=== PATIENT | female | born 1990 | race Two or more races ===

== ENCOUNTER 2017-08-11 05:58 | Inpatient (IN) | payer SELFPAY ==
[2017-08-11] MEDS ORDERED: OXYTOCIN 30 UNIT/500 ML PREMIX 500 ML IV ×3 (06:00→17:00)
[2017-08-11] MEDS ORDERED: ONDANSETRON PF 4 MG/2 ML VIAL. IV ×3 (06:00→20:30)
[2017-08-11] MEDS ORDERED: AMPICILLIN SODIUM 2 GM in IV NORMAL SALINE 100ML 100 ML IV (06:00)
[2017-08-11] MEDS ORDERED: LIDOCAINE 1% PF 30 ML VIAL. INJ (06:00)
[2017-08-11] MEDS ORDERED: TERBUTALINE 1 MG/ML VIAL. SQ (06:00)
[2017-08-11] MEDS ORDERED: BUTORPHANOL 2 MG/ML VIAL. IV (06:00)
[2017-08-11] MEDS ORDERED: AMPICILLIN SODIUM 1 GM in IV NORMAL SALINE 50ML 50 ML IV (06:15)
[2017-08-11] MEDS ORDERED: AMPICILLIN SODIUM IV Push 2 GM VIAL. IVP (06:30)
[2017-08-11 06:46] LABS: ADD MAN DIFF? NO
[2017-08-11 06:48] LABS: BASO % 1 % (0-3); EOS % 1 % (0-3); HEMATOCRIT 38.8 % (36.0-47.0); HEMOGLOBIN 12.9 g/dL (12.0-15.5); LYMPH # 2.2 x10^3/uL (1.0-4.8); LYMPH % 27 % (24-48); MEAN CORPUSCULAR HEMOGLOBIN 29 pg (25-35); MEAN CORPUSCULAR HGB CONC 33 g/dL (31-37); MEAN CORPUSCULAR VOLUME 88 fL (79-100); MONO # 0.6 x10^3/uL (0.0-1.1); MONO % 8 % (0-9); NEUT # 5.4 x10^3uL (1.8-7.7); NEUT % 65 % (31-73); PLATELET COUNT 206 x10^3/uL (140-400); RED BLOOD COUNT 4.41 x10^6/uL (3.50-5.40); RED CELL DISTRIBUTION WIDTH 14.4 % (11.5-14.5); WHITE BLOOD COUNT 8.3 x10^3/uL (4.0-11.0)
[2017-08-11] MEDS: IV RINGERS,LACTATED 1000ML 1,000 ML IV ×2 (09:45→12:06)
[2017-08-11] MEDS ORDERED: AMPICILLIN SODIUM IV Push 1 GM VIAL. IVP (11:00)
[2017-08-11] MEDS: CITRIC ACID/SODIUM CITRATE 30 ML SOLUTION. PO (14:08)
[2017-08-11] MEDS ORDERED: MORPHINE PF 5 MG/10 ML VIAL. (15:37)
[2017-08-11] MEDS ORDERED: OXYTOCIN 10 UNIT/ML VIAL. (15:37)
[2017-08-11] MEDS ORDERED: ePHEDrine PF IN SALINE 50 MG/5 ML DISP.SYRIN IV (15:58)
[2017-08-11] MEDS ORDERED: METOCLOPRAMIDE HCL 10 MG/2 ML VIAL. (16:07)
[2017-08-11] MEDS ORDERED: FERROUS SULFATE 325 MG TABLET. PO (17:00)
[2017-08-11] MEDS ORDERED: 0.9 % SODIUM CHLORIDE 10 ML DISP.SYRIN. IV (17:00)
[2017-08-11] MEDS ORDERED: oxyCODONE/APAP 5/325 1 TAB TABLET PO (17:00)
[2017-08-11] MEDS ORDERED: MAG HYDROX/ALUMINUM HYD/SIMETH 30 ML ORAL.SUSP PO (17:00)
[2017-08-11] MEDS ORDERED: diphenhydrAMINE ORAL ELIXIR 12.5 MG/5 ML ML PO (17:00)
[2017-08-11] MEDS ORDERED: SIMETHICONE 80 MG TAB.CHEW PO (17:00)
[2017-08-11] MEDS ORDERED: ZOLPIDEM 5 MG TABLET. PO (17:00)
[2017-08-11] MEDS ORDERED: MAGNESIUM HYDROXIDE 2,400 MG/30 ML ORAL.SUSP. PO (17:00)
[2017-08-11] MEDS ORDERED: MMR per PROTOCOL. MC (17:00)
[2017-08-11 17:02] LABS: BILIRUBIN,URINE NEGATIVE (NEG); CLARITY,URINE CLEAR; COLOR,URINE YELLOW; GLUCOSE,URINE NEGATIVE (NEG); NITRITE,URINE NEGATIVE (NEG); PH,URINE 7.5; PROTEIN,URINE NEGATIVE (NEG-TRACE); UROBILINOGEN,URINE 0.2 mg/dL (0.2 mg/dL)
[2017-08-11 17:17] LABS: BACTERIA,URINE 0 /HPF (0-FEW); HYALINE CASTS, URINE OCCASIONAL /HPF; RBC,URINE 0 /HPF (0-2); SQUAMOUS EPITHELIAL CELL,UR OCC /LPF; WBC,URINE OCC /HPF (0-4)
[2017-08-11] MEDS ORDERED: diphenhydrAMINE 50 MG/ML VIAL IVP ×2 (20:30)
[2017-08-11] MEDS: fentaNYL PF VIAL 100 MCG/2 ML VIAL IV (20:39)
[2017-08-11] MEDS ORDERED: ceFAZolin SODIUM 1 GM in IV DEXTROSE 5% 50 ML IV (22:00)
[2017-08-11] MEDS: IBUPROFEN 800 MG TABLET. PO (22:00)
[2017-08-11] MEDS: ceFAZolin SODIUM IV Push 1 GM VIAL. IVP (23:01)
[2017-08-12] MEDS: KETOROLAC 30 MG/ML INJ. IV ×2 (01:56→07:54)
[2017-08-12 03:15] LABS: RPR Non Reactive (Non Reactive)
[2017-08-12] MEDS: IV RINGERS,LACTATED 1000ML 1,000 ML IV ×2 (03:24→05:59)
[2017-08-12 04:53] LABS: ADD MAN DIFF? NO
[2017-08-12 04:56] LABS: BASO % 0 % (0-3); EOS % 0 % (0-3); HEMATOCRIT 35.2 % (36.0-47.0); HEMOGLOBIN 11.7 g/dL (12.0-15.5); LYMPH # 1.9 x10^3/uL (1.0-4.8); LYMPH % 15 % (24-48); MEAN CORPUSCULAR HEMOGLOBIN 29 pg (25-35); MEAN CORPUSCULAR HGB CONC 33 g/dL (31-37); MEAN CORPUSCULAR VOLUME 88 fL (79-100); MONO # 0.9 x10^3/uL (0.0-1.1); MONO % 7 % (0-9); NEUT # 10.4 x10^3uL (1.8-7.7); NEUT % 78 % (31-73); PLATELET COUNT 181 x10^3/uL (140-400); RED CELL DISTRIBUTION WIDTH 14.5 % (11.5-14.5); WHITE BLOOD COUNT 13.2 x10^3/uL (4.0-11.0)
[2017-08-12] MEDS: IBUPROFEN 800 MG TABLET. PO ×2 (06:00→14:09)
[2017-08-12] MEDS: ceFAZolin SODIUM IV Push 1 GM VIAL. IVP ×2 (06:24→14:09)
[2017-08-12] MEDS: DOCUSATE SODIUM 100 MG CAPSULE. PO (07:49)
[2017-08-12] MEDS: oxyCODONE/APAP 5/325 1 TAB TABLET PO (14:10)
[2017-08-12] MEDS: 0.9 % SODIUM CHLORIDE 10 ML DISP.SYRIN. IV (14:11)
[2017-08-13] MEDS: IBUPROFEN 800 MG TABLET. PO ×3 (03:01→15:26)
[2017-08-13] MEDS: oxyCODONE/APAP 5/325 1 TAB TABLET PO (15:26)
== END 2017-08-13 18:44 | disposition home or self-care (01) | DRG 766 ==
LOC: 3 SO LND 05:58 → 3 NORTH 21:00
PROC: 10D00Z1 Extraction of Products of Conception, Low, Open Approach (ICD-10-PCS; principal; 2017-08-11)
DX: O34.211 Maternal care for low transverse scar from previous cesarean delivery (principal); Z37.0 Single live birth; Z3A.40 40 weeks gestation of pregnancy
CPT/HCPCS: 36415; 81001; 85025; 86593; 86850; 86900; 86901; 86920; J0690; J1885; J2270; J2590; J2765; J3010; J7030; J7120